=== PATIENT | male | born 1965 | race Caucasian/White ===

== ENCOUNTER → 2022-12-17 09:33 | Outpatient (CLI) | payer OTHER, SELFPAY ==
--- NOTE | ~2022-12-17 | XR_ITS ---
XR chest 2V DATE: 12/17/2022 10:06 INDICATION: Cough TECHNIQUE: 2 views COMPARISON: 01/2012 two-view chest, PA and lateral projections FINDINGS: Normal heart size. Mild aortic tortuosity. No hilar or mediastinal enlargement. No pulmonar y infiltrate or consolidation, pleural effusion or pulmonary vascular congestion or pneumothorax. Inc luded skeletal structures appear unremarkable. IMPRESSION: No active cardiopulmonary disease Reviewed, dictated and finalized at location L.
== END ==
PROVIDERS: PCP Physician Assistant; Visit Provider Physician Assistant
DX: R05.9 Cough, unspecified (principal)
CPT/HCPCS: 71046